=== PATIENT | male | born 1975 | race Two or more races ===

== ENCOUNTER 2021-05-19 14:08 | Emergency (ER) | payer BC, OTHER ==
[2021-05-19 14:43] VITALS: BMI 41.8
[2021-05-19 16:55] LABS: BASO % 0.7 % (0-2.0); EOS % 1.8 % (0-4.5); HEMATOCRIT 43.3 % (35.4-49); HEMOGLOBIN 14.5 GM/dL (11.7-16.9); LYMPH % 39.8 % (8-40); MCH 28.7 pg (25.7-33.7); MCHC 33.4 g/dl (32.0-35.9); MEAN CELL VOLUME 85.9 fl (80-96); NEUT % 49.7 % (42.8-82.8); PLATELET COUNT 263 10^3/uL (134-434); RBC 5.04 M/mm3 (4.00-5.60); RDW 13.6 % (11.9-15.9); VENOUS BASE EXCESS -0.4 mmol/L (-2-2); VENOUS O2 SATURATION 74.8 % (70-80); VENOUS PCO2 49.1 mmHg (38-52); VENOUS PH 7.346 (7.310-7.410); WHITE BLOOD COUNT 7.7 K/mm3 (4.0-10.0)
[2021-05-19 17:04] LABS: PH,URINE 5.5 (5.0-8.0); URINE APPEARANCE CLEAR; URINE BILIRUBIN NEGATIVE (NEGATIVE); URINE COLOR DK YELLOW; URINE GLUCOSE (UA) 3+ (NEGATIVE); URINE KETONE NEGATIVE (NEGATIVE); URINE LEUK ESTERASE NEGATIVE (NEGATIVE); URINE NITRITE NEGATIVE (NEGATIVE); URINE PROTEIN TRACE (NEGATIVE); URINE UROBILINOGEN 0.2 mg/dL (0.2-1.0)
[2021-05-19 17:31] LABS: CHLORIDE 100 mmol/L (98-107); SODIUM 136 mmol/L (136-145)
[2021-05-19 17:34] LABS: ALBUMIN 3.7 g/dl (3.4-5.0); ANION GAP 8 MMOL/L (8-16); BLOOD UREA NITROGEN 8.8 mg/dL (7-18); CALCIUM 9.3 mg/dL (8.5-10.1); CO2 28 mmol/L (21-32)
[2021-05-19 17:37] LABS: CREATININE 0.9 mg/dL (0.55-1.3); SGOT/AST 23 U/L (15-37); SGPT/ALT 51 U/L (13-61)
[2021-05-19 17:38] LABS: TOT PROT 7.5 g/dl (6.4-8.2)
[2021-05-19 17:39] LABS: BILIRUBIN,TOTAL 0.3 mg/dL (0.2-1)
[2021-05-19 17:40] LABS: ALK PHOS 166 U/L (45-117)
[2021-05-19] MEDS ORDERED: INSULIN REGULAR HUMAN 100 UNITS/ML *VIAL IVPUSH ONE (17:50)
[2021-05-19] MEDS ORDERED: SODIUM CHLORIDE 0.9% 500 ML INFUS.BAG IV ONE (17:50)
[2021-05-19 18:19] LABS: GLUCOSE,RANDOM 409 mg/dL (74-106)
[2021-05-19 20:33] VITALS: BP 159/108; PULSE 82; TEMP 98.7
== END 2021-05-19 21:09 | disposition home or self-care (01) ==
LOC: JER 14:08
PROC: 3E033GC Introduction of Other Therapeutic Substance into Peripheral Vein, Percutaneous Approach (ICD-10-PCS; principal; 2021-05-19)
DX: E13.65 Other specified diabetes mellitus with hyperglycemia (principal)
CPT/HCPCS: 36415; 80053; 81003; 82010; 82550; 82553; 82803; 82962; 84484; 85025; 87086; 93005; 93010; 99284-25